=== PATIENT | female | born 1950 | race Caucasian/White ===

== ENCOUNTER → 2016-09-18 | Outpatient (CLI) | payer BC ==
[~2016-09-18] MED LIST: ALPRAZOLAM0.5 MG PO; AMBIEN 10MG10 MG PO; Antibiotic PO; CENESTIN1.25 MG PO; CRANBERRY FRUI405 MG PO; DEPLIN; HYDROXYZPAM; L-METHYLFOLATE7.5 MG PO; LEVOTHROID0.125 MG PO; LEVOTHYROXIN0.088 MG PO; LEVOTHYROXINE0.1 MG PO; LEXAPRO 10MG10 MG PO; LEXAPRO20 MG PO; MULTI VITAMINS1 TAB PO; NORCO 325 MG-51 TAB PO; PRINZIDE 12.5 M1 TAB PO; PROAIR HFA0.09 MG/AC IH; PROTONIX 40MG T40 MG PO; QVAR0.08 MG/AC IH; SYNTHROID 0.10.15 MG PO; SYNTHROID0.088 MG/T PO; TRILEPTAL300 MG PO; ULTRACET 325 MG1 TAB PO; XOPENEX 0.0.63 MG/3 IH; [UNRECOGNIZED DRUG - OTHER] PO
== END ==
LOC: COL.RAD 14:30
DX: S09.8XXA Other specified injuries of head, initial encounter (principal); X58.XXXA Exposure to other specified factors, initial encounter; R11.10 Vomiting, unspecified; J34.89 Other specified disorders of nose and nasal sinuses

== ENCOUNTER 2017-01-11 14:15 | Outpatient (RCR) | payer BC | END 2017-02-06 08:48 | disposition still patient (30) | LOC: MKS.ESL.PT 14:15 | DX: E11.42 Type 2 diabetes mellitus with diabetic polyneuropathy (principal) ==

== ENCOUNTER 2017-01-11 14:15 | Outpatient (RCR) | payer BC | END 2017-02-06 08:48 | disposition still patient (30) | LOC: MKS.ESL.PT 14:15 | DX: E11.42 Type 2 diabetes mellitus with diabetic polyneuropathy (principal) ==

== ENCOUNTER 2018-01-07 13:15 | Emergency (ER) | payer BC ==
[~2018-01-07] VITALS: Ht 162.6 cm; Wt 110.5 kg
[2018-01-07 13:23] VITALS: BP 122/56; TEMP 99.2
[2018-01-07] MEDS ORDERED: B-121000 MCG PO (13:47)
[2018-01-07] MEDS ORDERED: ULTRAM 50MG TAB50 MG PO (13:48)
[2018-01-07] MEDS ORDERED: SYNTHROID0.175 MG PO (13:49)
[2018-01-07 14:52] VITALS: PULSE 89
== END 2018-01-07 14:53 | disposition home or self-care (01) ==
LOC: COL.ER 13:15
DX: S63.617A Unspecified sprain of left little finger, initial encounter (principal); S93.402A Sprain of unspecified ligament of left ankle, initial encounter; S50.812A Abrasion of left forearm, initial encounter; S60.512A Abrasion of left hand, initial encounter; I10 Essential (primary) hypertension; Z79.51 Long term (current) use of inhaled steroids; W10.9XXA Fall (on) (from) unspecified stairs and steps, initial encounter; Y92.009 Unspecified place in unspecified non-institutional (private) residence as the place of occurrence of the external cause

== ENCOUNTER → 2018-09-08 | Outpatient (CLI) | payer MEDICARE ==
[~2018-09-08] MED LIST changes: +B-121000 MCG PO; +SYNTHROID0.175 MG PO; +ULTRAM 50MG TAB50 MG PO
== END ==
LOC: MC.RAD 07-28 10:40
DX: Z12.31 Encounter for screening mammogram for malignant neoplasm of breast (principal); Z98.890 Other specified postprocedural states; Z85.3 Personal history of malignant neoplasm of breast; Z98.82 Breast implant status; R92.1 Mammographic calcification found on diagnostic imaging of breast; Z92.3 Personal history of irradiation

== ENCOUNTER 2018-11-23 16:03 | Emergency (ER) | payer MEDICARE, OTHER ==
[~2018-11-23] VITALS: Ht 162.6 cm; Wt 111.4 kg
[2018-11-23 16:11] VITALS: TEMP 98.6
[2018-11-23] MEDS ORDERED: LEXAPRO20 MG PO (17:22)
[2018-11-23] MEDS ORDERED: SYNTHROID0.175 MG PO (17:23)
[2018-11-23] MEDS ORDERED: L-METHYLFOLATE15 MG PO (17:23)
[2018-11-23] MEDS ORDERED: ROBINUL1 MG PO (17:24)
[2018-11-23] MEDS ORDERED: ULTRAM 50MG TAB50 MG PO (17:25)
[2018-11-23] MEDS ORDERED: NEXIUM 40MG40 MG PO (17:25)
[2018-11-23] MEDS ORDERED: VITAMIN B-1000 MCG/T PO (17:26)
[2018-11-23] MEDS ORDERED: ATIVAN 0.50.5 MG/TAB PO (17:27)
[2018-11-23] MEDS ORDERED: QVAR REDIHALE10.6 G1 IH (17:28)
[2018-11-23 17:43] LABS: BASO % 0.2 % (0.0-2.0); EOS # 0.2 (0.0-0.7); EOS % 4.2 % (0-4.0); GRAN # 3.1 (1.4-6.5); GRAN % 60.4 % (42.2-75.2); HEMATOCRIT 38.8 % (37.0-47.0); HEMOGLOBIN 12.7 g/dl (12.5-16.0); LYMPH # 1.3 (1.2-3.4); LYMPH % 26.3 % (20.0-51.0); MEAN CELL VOLUME 83 fl (80.0-100.0); MEAN CORPUSCULAR HEMOGLOBIN 27 pg (27.0-31.0); MEAN CORPUSCULAR HGB CONC 33 g/dl (33.0-37.0); MEAN PLATELET VOLUME 9.5 fl (7.4-10.4); MONO # 0.4 (0.1-0.6); MONO % 8.3 % (1.7-9.3); PLATELET COUNT 258 K/mm3 (130-400); RED BLOOD COUNT 4.68 M/mm3 (4.10-5.30); REDCELL DISTRIBUTION WIDTH-CV 14.4 % (11.5-14.5)
[2018-11-23 17:48] LABS: ALBUMIN 3.9 gm/dL (3.5-5.0); BILIRUBIN,TOTAL 0.5 mg/dL (0.0-1.0); CALCIUM 9.2 mg/dL (8.4-10.2); CREATININE, serum 0.75 mg/dL (0.52-1.25); POTASSIUM 3.6 mmol/L (3.4-5.0); TOTAL PROTEIN 6.9 gm/dL (6.4-8.2)
[2018-11-23 17:53] LABS: COLLECTION METHOD CLEAN CATCH
[2018-11-23 18:00] LABS: PH 6 (5-8); SQUAMOUS EPITHELIAL 0-2 /hpf; URINE APPEARANCE Clear; URINE BACTERIA None Seen /hpf; URINE BILIRUBIN Negative (NEGATIVE); URINE BLOOD Negative (NEGATIVE); URINE COLOR Straw; URINE GLUCOSE Negative (NEGATIVE); URINE KETONE Negative (NEGATIVE); URINE LEUKOCYTE ESTERASE Negative (NEGATIVE); URINE NITRATE Negative (NEGATIVE); URINE PROTEIN(semi-quant) Negative (NEGATIVE); URINE RBC 0-2 /hpf; URINE UROBILINOGEN Negative (NEGATIVE)
[2018-11-23 18:06] LABS: PROLACTIN 10.6 ng/mL (3.0-18.6)
[2018-11-23 20:01] VITALS: BP 139/78; PULSE 92
== END 2018-11-23 20:01 | disposition home or self-care (01) ==
LOC: COL.ER 16:03
PROVIDERS: Emergency Medicine
DX: R56.9 Unspecified convulsions (principal)

== ENCOUNTER → 2020-08-09 | Outpatient (CLI) | payer MEDICARE, OTHER ==
[~2020-08-09] MED LIST changes: +ATIVAN 0.50.5 MG/TAB PO; +L-METHYLFOLATE15 MG PO; +NEXIUM 40MG40 MG PO; +QVAR REDIHALE10.6 G1 IH; +ROBINUL1 MG PO; +VITAMIN B-1000 MCG/T PO
== END ==
LOC: MC.RAD 13:57
DX: Z12.31 Encounter for screening mammogram for malignant neoplasm of breast (principal); Z98.890 Other specified postprocedural states; Z98.82 Breast implant status

== ENCOUNTER 2020-08-24 00:15 | Emergency (ER) | payer MEDICARE, OTHER ==
[~2020-08-24] VITALS: Ht 162.6 cm; Wt 102.3 kg
[2020-08-24 01:46] LABS: BASO % 0.4 % (0.0-2.0); EOS # 0.2 (0.0-0.7); EOS % 2.7 % (0-4.0); GRAN # 5.1 (1.4-6.5); GRAN % 64.5 % (42.2-75.2); HEMOGLOBIN 11.6 g/dl (12.5-16.0); LYMPH # 1.8 (1.2-3.4); LYMPH % 23.4 % (20.0-51.0); MEAN CELL VOLUME 80 fl (80.0-100.0); MEAN CORPUSCULAR HEMOGLOBIN 26 pg (27.0-31.0); MEAN CORPUSCULAR HGB CONC 33 g/dl (33.0-37.0); MEAN PLATELET VOLUME 9.2 fl (7.4-10.4); MONO # 0.7 (0.1-0.6); MONO % 8.7 % (1.7-9.3); PLATELET COUNT 239 K/mm3 (130-400); RED BLOOD COUNT 4.39 M/mm3 (4.10-5.30); REDCELL DISTRIBUTION WIDTH-CV 14.1 % (11.5-14.5)
[2020-08-24 01:47] LABS: HEMATOCRIT 35.3 % (37.0-47.0)
[2020-08-24 01:56] LABS: ALANINE AMINOTRANSFERASE 17 U/L (4-34); ALBUMIN 4.1 gm/dL (3.5-5.0); ALKALINE PHOSPHATASE 82 U/L (50-136); ANION GAP 11 mmol/L (7-16); AST,SGOT 27 U/L (15-37); BILIRUBIN,TOTAL 0.4 mg/dL (0.0-1.0); BLOOD UREA NITROGEN 16 mg/dL (7-17); CALCIUM 9.6 mg/dL (8.4-10.2); CARBON DIOXIDE 24 mmol/L (22-30); CHLORIDE 106 mmol/L (98-107); GLUCOSE 157 mg/dL (74-106); POTASSIUM 3.6 mmol/L (3.4-5.0); SODIUM 142 mmol/L (137-145); TOTAL PROTEIN 6.9 gm/dL (6.4-8.2)
[2020-08-24 02:11] LABS: TROPONIN-I < 0.012 ng/mL (0.000-0.035)
[2020-08-24 05:40] VITALS: BP 132/70; PULSE 78
== END 2020-08-24 05:40 | disposition home or self-care (01) ==
LOC: COL.ER 00:15
PROVIDERS: Emergency Medicine
DX: R00.2 Palpitations (principal); R00.0 Tachycardia, unspecified; Z88.2 Allergy status to sulfonamides; Z88.6 Allergy status to analgesic agent
CPT/HCPCS: J7030

== ENCOUNTER → 2021-09-26 | Outpatient (CLI) | payer MEDICARE | LOC: MC.RAD 12:02 | DX: Z12.31 Encounter for screening mammogram for malignant neoplasm of breast (principal) ==

== ENCOUNTER → 2022-09-26 | Outpatient (CLI) | payer MEDICARE | LOC: MC.RAD 12:47 | DX: Z12.31 Encounter for screening mammogram for malignant neoplasm of breast (principal) ==

== ENCOUNTER 2023-09-22 14:37 | Emergency (ER) | payer MEDICARE ==
[~2023-09-22] VITALS: Ht 162.6 cm; Wt 113.2 kg
[~2023-09-22 14:37] MED LIST changes: +ACTOS 15MG TAB15 MG PO; +CRESTOR 10MG10 MG PO; +LYRICA 75MG CAP75 MG PO; +SYNTHROID0.125 MG/T PO; +THE MEDICINE S200 M2 PO; +VITAMIN B COMPL1 SGL PO
[2023-09-22 14:42] VITALS: TEMP 97.8
[2023-09-22 15:06] LABS: COLLECTION METHOD CLEAN CATCH
[2023-09-22 15:21] LABS: ALANINE AMINOTRANSFERASE 20 U/L (0-55); ALKALINE PHOSPHATASE 91 U/L (40-150); ANION GAP 10 mmol/L (7-16); AST,SGOT 22 U/L (5-34); BILIRUBIN,TOTAL 0.5 mg/dL (0.2-1.2); BLOOD UREA NITROGEN 8 mg/dL (10-20); CALCIUM 9.7 mg/dL (8.4-10.2); CARBON DIOXIDE 22 mmol/L (23-31); CHLORIDE 107 mmol/L (98-107); GLUCOSE 119 mg/dL (70-99); POTASSIUM 3.6 mmol/L (3.5-4.5); SODIUM 139 mmol/L (136-145); TOTAL PROTEIN 7.3 gm/dL (6.2-8.1)
[2023-09-22 15:29] LABS: TROPONIN-I < 0.010 ng/mL (0.00-0.033)
[2023-09-22 15:50] LABS: AMORPHOUS CRYSTAL Present (NOT PRESENT); URINE APPEARANCE Clear (CLEAR/HAZY); URINE BLOOD Negative (NEGATIVE); URINE COLOR Yellow (YELLOW); URINE GLUCOSE Negative (NEGATIVE); URINE KETONE Negative (NEGATIVE); URINE NITRATE Negative (NEGATIVE); URINE PROTEIN(semi-quant) Negative (NEGATIVE); URINE RBC None Seen /hpf (0-2); URINE UROBILINOGEN 0.2 E.U/dL (0.2-1.0)
[2023-09-22 16:36] LABS: BASO % 0.5 % (0.0-2.0); EOS # 0.2 K/mm3 (0.0-0.7); EOS % 2.3 % (0.0-4.0); GRAN # 4.5 K/mm3 (1.4-6.5); GRAN % 69.8 % (42.2-75.2); HEMOGLOBIN 11.5 g/dl (12.5-16.0); LYMPH # 1.2 K/mm3 (1.2-3.4); LYMPH % 18.7 % (20.0-51.0); MEAN CELL VOLUME 83 fl (80.0-100.0); MEAN CORPUSCULAR HEMOGLOBIN 27 pg (27-31); MEAN CORPUSCULAR HGB CONC 32 g/dl (33.0-37.0); MEAN PLATELET VOLUME 9.9 fl (7.4-10.4); MONO # 0.5 K/mm3 (0.1-0.6); MONO % 8.4 % (1.7-9.3); PLATELET COUNT 197 K/mm3 (130-400); RED BLOOD COUNT 4.27 M/mm3 (4.10-5.30); REDCELL DISTRIBUTION WIDTH-CV 15.3 % (11.5-14.5)
[2023-09-22 16:37] LABS: HEMATOCRIT 35.6 % (37.0-47.0)
[2023-09-22 18:38] VITALS: BP 135/77; PULSE 84
== END 2023-09-22 18:53 | disposition home or self-care (01) ==
LOC: COL.ER 14:37
PROVIDERS: Emergency Medicine
DX: R55 Syncope and collapse (principal)

== ENCOUNTER 2023-09-25 00:26 | Emergency (ER) | payer MEDICARE ==
[~2023-09-25] VITALS: Ht 162.6 cm; Wt 114.1 kg
[2023-09-25 00:41] VITALS: TEMP 99.4
[2023-09-25] MEDS ORDERED: NS 1,000 ML IV ONE ×2 (01:00→03:15)
[2023-09-25] MEDS ORDERED: Ondansetron 4 MG/2 ML VIAL IV ONE ×2 (01:00→01:45)
[2023-09-25 01:31] LABS: HEMATOCRIT 37.9 % (37.0-47.0); HEMOGLOBIN 12.4 g/dl (12.5-16.0); MEAN CELL VOLUME 83 fl (80.0-100.0); MEAN CORPUSCULAR HEMOGLOBIN 27 pg (27-31); MEAN CORPUSCULAR HGB CONC 33 g/dl (33.0-37.0); MEAN PLATELET VOLUME 9.5 fl (7.4-10.4); PLATELET COUNT 201 K/mm3 (130-400); RED BLOOD COUNT 4.57 M/mm3 (4.10-5.30)
[2023-09-25 01:48] LABS: ALANINE AMINOTRANSFERASE 21 U/L (0-55); ALBUMIN 3.9 gm/dL (3.4-4.8); ALKALINE PHOSPHATASE 79 U/L (40-150); ANION GAP 12 mmol/L (7-16); AST,SGOT 22 U/L (5-34); BILIRUBIN,TOTAL 0.8 mg/dL (0.2-1.2); BLOOD UREA NITROGEN 12 mg/dL (10-20); C-REACTIVE PROTEIN 1.53 mg/dL (0.00-0.50); CALCIUM 9.5 mg/dL (8.4-10.2); CARBON DIOXIDE 22 mmol/L (23-31); CHLORIDE 109 mmol/L (98-107); CREATININE, serum 0.89 mg/dL (0.57-1.11); GLUCOSE 195 mg/dL (70-99); LIPASE 12 U/L (8-78); POTASSIUM 3.4 mmol/L (3.5-4.5); SODIUM 143 mmol/L (136-145); TOTAL PROTEIN 7.1 gm/dL (6.2-8.1)
[2023-09-25 01:55] LABS: TROPONIN-I < 0.010 ng/mL (0.00-0.033)
[2023-09-25 01:59] LABS: COLLECTION METHOD CLEAN CATCH
[2023-09-25 02:05] LABS: ANISOCYTOSIS 1+; BAND 1 % (0-10); HYPOCHROMIA 1+; LYMPHOCYTE 3 % (20.0-51.0); NEUTROPHILS 90 % (42.0-75.2); PLATELET ESTIMATE NORMAL (NORMAL)
[2023-09-25 02:06] LABS: MICROCYTOSIS 1+; STOMATOCYTE 1+
[2023-09-25 02:37] LABS: PH 5.5 (5.0-8.5); URINE APPEARANCE Clear (CLEAR/HAZY); URINE BLOOD Negative (NEGATIVE); URINE COLOR Yellow (YELLOW); URINE GLUCOSE Negative (NEGATIVE); URINE KETONE Negative (NEGATIVE); URINE NITRATE Negative (NEGATIVE); URINE PROTEIN(semi-quant) Negative (NEGATIVE); URINE UROBILINOGEN 0.2 E.U/dL (0.2-1.0)
[2023-09-25 02:38] LABS: MUCOUS Present (NOT PRESENT); URINE BACTERIA Moderate /hpf (NONE SEEN)
[2023-09-25] MEDS ORDERED: Acetaminophen 500 MG TAB PO ONE (04:30)
[2023-09-25] MEDS ORDERED: ZOFRAN ODT4 MG PO (05:12)
[2023-09-25] MEDS ORDERED: VANTIN 200200 MG/TAB PO (05:12)
[2023-09-25 05:24] VITALS: BP 121/95; PULSE 118
== END 2023-09-25 05:25 | disposition home or self-care (01) ==
LOC: COL.ER 00:26
PROVIDERS: Emergency Medicine
DX: N39.0 Urinary tract infection, site not specified (principal); R00.0 Tachycardia, unspecified; Z88.2 Allergy status to sulfonamides
CPT/HCPCS: J2405; J7030

== ENCOUNTER → 2023-11-14 | Outpatient (CLI) | payer MEDICARE ==
[~2023-11-14] MED LIST changes: +ATIVAN 1MG T1 MG/TAB PO; +VANTIN 200200 MG/TAB PO; +ZOFRAN ODT4 MG PO
== END ==
LOC: MC.RAD 13:50
DX: Z12.31 Encounter for screening mammogram for malignant neoplasm of breast (principal)